=== PATIENT | male | born 2000 | race Caucasian/White ===

== ENCOUNTER 2023-09-01 10:34 | Emergency (ER) | payer BC | END 2023-09-01 12:15 | disposition home or self-care (01) | LOC: ERS 10:34 | DX: J93.9 Pneumothorax, unspecified (principal); F17.290 Nicotine dependence, other tobacco product, uncomplicated | CPT/HCPCS: 71046 ==

== ENCOUNTER 2023-09-07 14:35 | Outpatient (CLI) | payer BC | END 2023-09-07 14:36 | disposition home or self-care (01) | LOC: RAD 14:35 | PROVIDERS: ATTEND Thoracic Surgery (Cardiothoracic Vascular Surgery) | DX: J93.9 Pneumothorax, unspecified (principal) | CPT/HCPCS: 71046 ==